=== PATIENT | male | born 1940 | race African-American/Black ===

== ENCOUNTER 2017-12-18 16:12 | Inpatient (IN) | payer BC, OTHER ==
[2017-12-18 16:27] VITALS: BMI 31.5
[2017-12-18] MEDS ORDERED: ACETAMINOPHEN 325 MG TABLET (FP) PO ONE (16:35)
--- NOTE | 2017-12-18 16:46 | PDOC ---
History of Present Illness - General Chief Complaint: Syncope/Near Syncope Stated Complaint: FALL Time Seen by Provider: 12/18/17 16:27 History Source: Patient Exam Limitations: No Limitations - History of Present Illness Initial Comments: 12/18/17 16:39 Patient is a 77M with history of HTN, CHF, DM, CVA/TIA who is presenting today complaining of syncope. Patient states that he was waiting for the bus when he suddenly lost consciousness. He reports no prodromal symptoms. He states that he does not remember what happened. He states that he was not confused when he woke up and felt fine. He denies fevers, chills, nausea, vomiting. He denies shortness of breath. Past History - Past Medical History Allergies/Adverse Reactions: Allergies Allergy/AdvReac Type Severity Reaction Status Date / Time No Known Allergies Allergy Verified 02/25/16 02:40 Home Medications: Ambulatory Orders Allopurinol [Zyloprim -] 300 mg PO DAILY 02/25/16 Clopidogrel Bisulfate [Plavix -] 75 mg PO DAILY 02/25/16 Furosemide [Lasix -] 20 mg PO DAILY 02/25/16 Glyburide [Diabeta -] 2.5 mg PO DAILY 02/25/16 Memantine HCl [Namenda -] 28 mg PO DAILY 02/25/16 Metoprolol Succinate [Toprol Xl] 75 mg PO DAILY 02/25/16 Simvastatin [Zocor -] 20 mg PO HS 02/25/16 Anemia: No Asthma: No Cancer: No Cardiac Disorders: No CVA: Yes COPD: No CHF: No Dementia: No Diabetes: Yes GI Disorders: No HTN: Yes Hypercholesterolemia: No Liver Disease: No Seizures: No - Surgical History Abdominal Surgery: No Appendectomy: No Cardiac Surgery: No Cholecystectomy: No Lung Surgery: No Neurologic Surgery: No Orthopedic Surgery: No - Immunization History Immunization Up to Date: Yes - Suicide/Smoking/Psychosocial Hx Smoking History: Unknown if ever smoked Have you smoked in the past 12 months: No Number of Cigarettes Smoked Daily: 0 If you are a former smoker, when did you quit?: 1997 Cigars Per Day: 0 Hx Alcohol Use: No Drug/Substance Use Hx: No Substance Use Type: None Hx Substance Use Treatment: No Review of Systems - Review of Systems Comments:: 12/18/17 16:46 GENERAL/CONSTITUTIONAL: No fever or chills. No weakness. HEAD, EYES, EARS, NOSE AND THROAT: No change in vision. No sore throat. CARDIOVASCULAR: No chest pain or shortness of breath RESPIRATORY: No cough, wheezing, or hemoptysis. GASTROINTESTINAL: No nausea, vomiting, diarrhea or constipation. GENITOURINARY: No dysuria, frequency, or change in urination. MUSCULOSKELETAL: No joint or muscle swelling or pain. No neck or back pain. SKIN: No rash NEUROLOGIC: Positive for headache. Negative for vertigo, loss of consciousness, or change in strength/sensation. HEMATOLOGIC/LYMPHATIC: No anemia, easy bleeding, or history of blood clots. ALLERGIC/IMMUNOLOGIC: No hives or skin allergy. *Physical Exam - Vital Signs Last Vital Signs Temp Pulse Resp BP Pulse Ox 98.0 F 84 18 157/67 95 12/18/17 16:22 12/18/17 16:22 12/18/17 16:22 12/18/17 16:22 12/18/17 16:22 - Physical Exam Comments: 12/18/17 16:48 GENERAL: Awake, alert, and fully oriented, in no acute distress HEAD: Normocephalic, 6x3cm with overlying abrasion EYES: PERRLA, EOMI, sclera anicteric, conjunctiva clear ENT: Auricles normal inspection, hearing grossly normal, nares patent, oropharynx clear without exudates. Moist mucosa NECK: Normal ROM, supple, no lymphadenopathy, JVD, or masses, no midline tenderness LUNGS: No distress, speaks full sentences, clear to auscultation bilaterally HEART: Regular rate and rhythm, normal S1 and S2, no murmurs, rubs or gallops, peripheral pulses normal and equal bilaterally. ABDOMEN: Soft, nontender, normoactive bowel sounds. No guarding, no rebound. No masses EXTREMITIES: Normal inspection, Normal range of motion, 2+ pitting edema in right leg only. No clubbing or cyanosis. NEUROLOGICAL: Cranial nerves II through XII grossly intact. Normal speech, no focal sensorimotor deficits SKIN: Warm, Dry, normal turgor, no rashes or lesions noted. ED Treatment Course - LABORATORY CBC & Chemistry Diagram: 12/18/17 17:00 12/18/17 17:00 - RADIOLOGY Radiology Studies Ordered: Category Date Time Status HEAD CT WITHOUT CONTRAST [CT] Stat CT Scan 12/18/17 16:35 Ordered CHEST X-RAY PORTABLE* [RAD] Stat Radiology 12/18/17 16:35 Ordered DUPLEX VASCUL US-1 LEG [US] Stat Ultrasound 12/18/17 16:36 Ordered Medical Decision Making - Medical Decision Making 12/18/17 16:49 Patient is a 77M with history of CVA/TIA, HTN, CHF, DM here today with drop syncope. Vital signs normal and stable. Wound on head is not amenable to repair. C-spine cleared by nexus. Cannot rule out significant head injury due to age. Will do cardiac workup, admit. Will also do DVT study 1 week ago that was negative to rule out. EKG shows normal sinus rhythm with rate of 81. No st elevations. ST depression in V6, I. Possible depression in V5. LBBB morphology but QRS <120 at 112. Normal NM/QTc intervals. 12/18/17 18:00 Laboratory Tests 12/18/17 12/18/17 17:00 17:00 WBC 13.3 H Hgb 13.4 Plt Count 253 D BUN 55 H D Creatinine 2.1 H D Troponin I < 0.02 D CBC shows leukocytosis. CMP shows MARGARET. Troponin undetectable. Will add on UA/ UC. Will give 1L. 12/18/17 18:[address] negative. 12/18/17 18:03 CXR shows no acute cardiopulmonary process. 12/18/17 18:09 Dr Jarrett accepts admission to [facility]. *DC/Admit/Observation/Transfer Diagnosis at time of Disposition: Syncope - Discharge Dispostion Condition at time of disposition: Stable Decision to Admit order: Yes - Referrals Referrals: Tyshawn Jarrett MD [Primary Care Provider] - - Patient Instructions - Post Discharge Activity
--- NOTE | 2017-12-18 17:03 | PDOC ---
Attending Attestation - Resident Resident Name: SaranadDylon - ED Attending Attestation I have performed the following: I have examined & evaluated the patient, The case was reviewed & discussed with the resident, I agree w/resident's findings & plan, Exceptions are as noted - HPI HPI: 12/18/17 16:59 With past medical history of hypertension, hyperlipidemia, TIA, CHF, stroke presents with drops and to be. The patient reports that he woke up in his usual state of health. While he was waiting for the bus, the patient had a sudden drops in to be. Denied chest pain, palpitations. Patient woke up and had an abrasion and hematoma to the forehead, nothing that could be sutured up. denies recent illnesses, fevers, chills, cough, vomiting, diarrhea. Patient has no complaints other than his hematoma. Patient had a recent checkup with his primary care physician, Dr. Tyshawn Jarrett, and reportedly had an unremarkable findings. - Physicial Exam PE: 12/18/17 17:00 GENERAL: Awake, alert, and fully oriented, in no acute distress. HEAD: ~6x4 cm hematoma and abrasion to forehead, nothing to be sutured. EYES: PERRLA, EOMI, sclera anicteric, conjunctiva clear ENT: Auricles normal inspection, hearing grossly normal, nares patent NECK: Normal ROM, supple LUNGS: Breath sounds equal, clear to auscultation bilaterally. No wheezes, and no crackles HEART: Regular rate and rhythm, normal S1 and S2, no murmurs, rubs or gallops ABDOMEN: Soft, nontender, normoactive bowel sounds. No guarding, no rebound. No masses EXTREMITIES: Normal range of motion. Trace RLE edema. NEUROLOGICAL: Cranial nerves II through XII grossly intact. Normal speech SKIN: Warm, Dry, normal turgor, no rashes or lesions noted. - Medical Decision Making 12/18/17 17:01 Vital Signs Temp Pulse Resp BP Pulse Ox 98.0 F 84 18 157/67 95 12/18/17 16:22 12/18/17 16:22 12/18/17 16:22 12/18/17 16:22 12/18/17 16:22 Patient would drop syncope. We'll need to rule out neurological, cardiac etiology. CAT scan, labs including troponin, cardiac telemetry. We'll need to update the patient's tetanus. The patient should be admitted to the hospital for further evaluation. 12/18/17 18:[address] demonstrates left frontal scalp hematoma. No CT evidence of acute Pathology. CBC, BMP 12/18/17 17:00 12/18/17 17:00 CMP Sodium 137 mmol/L (136-145) 12/18/17 17:00 Potassium 3.2 mmol/L (3.5-5.1) L 12/18/17 17:00 Chloride 95 mmol/L (98-107) L 12/18/17 17:00 Carbon Dioxide 32 mmol/L (21-32) 12/18/17 17:00 Anion Gap 10 (8-16) 12/18/17 17:00 BUN 55 mg/dL (7-18) H D 12/18/17 17:00 Creatinine 2.1 mg/dL (0.7-1.3) H D 12/18/17 17:00 Creat Clearance w eGFR 30.62 (>60) 12/18/17 17:00 Random Glucose 149 mg/dL (74-106) H 12/18/17 17:00 Calcium 8.7 mg/dL (8.5-10.1) 12/18/17 17:00 Magnesium 2.2 mg/dL (1.8-2.4) 12/18/17 17:00 Total Bilirubin 0.8 mg/dL (0.2-1.0) D 12/18/17 17:00 AST 21 U/L (15-37) D 12/18/17 17:00 ALT 25 U/L (12-78) D 12/18/17 17:00 Alkaline Phosphatase 75 U/L (45-117) 12/18/17 17:00 Creatine Kinase 118 IU/L (39-308) 12/18/17 17:00 Troponin I < 0.02 ng/ml (0.00-0.05) D 12/18/17 17:00 Total Protein 7.7 g/dl (6.4-8.2) D 12/18/17 17:00 Albumin 3.8 g/dl (3.4-5.0) 12/18/17 17:00 Pt noted with acute renal failure. Given drop syncope and acute renal failure, patient should be admitted for further evaluation and management. Heart Score/ECG Review #1 ECG reviewed & interpreted by me at: 16:45 12/18/17 17:01 NSR 81, incomplete LBBB, ST & T wave abnormality, QTC 436 msec
[2017-12-18] MEDS ORDERED: ACETAMINOPHEN 325 MG TABLET (FP) ONE (17:06)
[2017-12-18 17:09] LABS: BASO % 0.5 % (0-2.0); EOS % 1.6 % (0-4.5); HEMATOCRIT 41.1 % (35.4-49); HEMOGLOBIN 13.4 GM/dL (11.7-16.9); LYMPH % 9.9 % (8-40); MCH 31.4 pg (25.7-33.7); MCHC 32.6 g/dl (32.0-35.9); MEAN CELL VOLUME 96.1 fl (80-96); MEAN PLT VOLUME 8.2 fl (7.5-11.1); MONO % 11.4 % (3.8-10.2); NEUT % 76.6 % (42.8-82.8); PLATELET COUNT 253 K/MM3 (134-434); RBC 4.28 M/mm3 (4.00-5.60); WHITE BLOOD COUNT 13.3 K/mm3 (4.0-10.0)
[2017-12-18 17:21] LABS: INR 1.14 (0.82-1.09); PROTHROMBIN TIME (PATIENT) 12.9 SEC (9.7-13.0)
[2017-12-18 17:41] LABS: ALBUMIN 3.8 g/dl (3.4-5.0); ANION GAP 10 (8-16); BLOOD UREA NITROGEN 55 mg/dL (7-18); CALCIUM 8.7 mg/dL (8.5-10.1); CHLORIDE 95 mmol/L (98-107); CO2 32 mmol/L (21-32); GLUCOSE,RANDOM 149 mg/dL (74-106); MAGNESIUM 2.2 mg/dL (1.8-2.4); POTASSIUM 3.2 mmol/L (3.5-5.1); SODIUM 137 mmol/L (136-145)
[2017-12-18 17:47] LABS: ALK PHOS 75 U/L (45-117); BILIRUBIN,TOTAL 0.8 mg/dL (0.2-1.0); CREATININE 2.1 mg/dL (0.7-1.3); SGOT/AST 21 U/L (15-37); SGPT/ALT 25 U/L (12-78); TOT PROT 7.7 g/dl (6.4-8.2)
[2017-12-18] MEDS ORDERED: SODIUM CHLORIDE 1,000 ML IV STA (18:00)
[2017-12-18 19:35] LABS: URINE APPEARANCE CLEAR; URINE BILIRUBIN NEGATIVE (<2.0 mg/dL); URINE BLOOD NEGATIVE (NEGATIVE); URINE COLOR LTYELLOW; URINE GLUCOSE (UA) NEGATIVE (NEGATIVE); URINE KETONE NEGATIVE (NEGATIVE); URINE LEUK ESTERASE NEGATIVE (NEGATIVE); URINE NITRITE NEGATIVE (NEGATIVE); URINE PROTEIN NEGATIVE (NEGATIVE); URINE UROBILINOGEN NEGATIVE mg/dL (0.2-1.0)
[2017-12-19] MEDS ORDERED: ACETAMINOPHEN 325 MG TABLET (FP) PO PRN (00:04)
[2017-12-19 06:36] LABS: ALBUMIN 3.5 g/dl (3.4-5.0); ALK PHOS 75 U/L (45-117); ANION GAP 9 (8-16); BILIRUBIN,TOTAL 0.7 mg/dL (0.2-1.0); BLOOD UREA NITROGEN 44 mg/dL (7-18); CALCIUM 8.5 mg/dL (8.5-10.1); CHLORIDE 101 mmol/L (98-107); CO2 32 mmol/L (21-32); CREATININE 1.6 mg/dL (0.7-1.3); GLUCOSE,RANDOM 131 mg/dL (74-106); POTASSIUM 3.4 mmol/L (3.5-5.1); SGOT/AST 28 U/L (15-37); SGPT/ALT 31 U/L (12-78); SODIUM 142 mmol/L (136-145); TOT PROT 7.2 g/dl (6.4-8.2)
[2017-12-19] MEDS ORDERED: POTASSIUM CHLORIDE ORAL LIQUID 20 MEQ/15 ML PO ONE (09:30)
[2017-12-19] MEDS: CLOPIDOGREL BISULFATE 75 MG TABLET (FP) PO SCH (09:32)
[2017-12-19] MEDS: METOPROLOL SUCCINATE 50 MG, METOPROLOL SUCCINATE 25 MG PO SCH (09:33)
[2017-12-19] MEDS ORDERED: POTASSIUM CHLORIDE ORAL LIQUID 20 MEQ/15 ML ONE (09:34)
--- NOTE | 2017-12-19 11:28 | CON.CARD ---
Consult Consult Specialty:: Cardiology Referred by:: Dr Tyshawn Jarrett Reason for Consultation:: syncope - History of Present Illness Chief Complaint: syncope History of Present Illness: He is a 77 year old man with a history of HTN, NIDDM, chol, chest pain workup 2016 with normal coronaries by Cath at [facility] who now is admitted with syncope. He was standing up at the time and lost consciousness without prodrome. Denies incontinence. No sz activity witnessed. he was recently seen by a [facility] outreach girl friday in Dr Jarrett's office. Echo 02/25/16 mild glob HK, mild LVH, LAE mild to moderate MR FCDAOV Nuclear stress 02/25/16 sm-mod mild inferolateral ischemia EF 37% cath per pt [place] 2016 unremarkable. 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) Cardio/Vascular: Yes: HTN Gastrointestinal: Yes: Diverticulosis Musculoskeletal: Yes: Other (knee o/a) - Alcohol/Substance Use Hx Alcohol Use: No - Smoking History Smoking history: Unknown if ever smoked Have you smoked in the past 12 months: No Aproximately how many cigarettes per day: 0 If you are a former smoker, when did you quit?: 1996 Home Medications - Allergies Allergies/Adverse Reactions: Allergies Allergy/AdvReac Type Severity Reaction Status Date / Time No Known Allergies Allergy Verified 02/25/16 02:40 - Home Medications Home Medications: Ambulatory Orders Allopurinol [Zyloprim -] 300 mg PO DAILY 02/25/16 Clopidogrel Bisulfate [Plavix -] 75 mg PO DAILY 02/25/16 Furosemide [Lasix -] 20 mg PO DAILY 02/25/16 Glyburide [Diabeta -] 2.5 mg PO DAILY 02/25/16 Memantine HCl [Namenda -] 28 mg PO DAILY 02/25/16 Metoprolol Succinate [Toprol Xl] 75 mg PO DAILY 02/25/16 Simvastatin [Zocor -] 20 mg PO HS 02/25/16 Review of Systems - Review of Systems Constitutional: reports: No Symptoms Eyes: reports: No Symptoms HENT: reports: No Symptoms Neck: reports: No Symptoms Respiratory: reports: No Symptoms Gastrointestinal: reports: No Symptoms Genitourinary: reports: No Symptoms Vital Signs: Vital Signs Temperature 97.8 F 12/19/17 08:15 Pulse Rate 80 12/19/17 08:15 Respiratory Rate 16 12/19/17 08:15 Blood Pressure 123/57 12/19/17 08:15 O2 Sat by Pulse Oximetry (%) 97 12/19/17 08:15 Constitutional: Yes: No Distress Eyes: Yes: Conjunctiva Clear, EOM Intact HENT: Yes: Other (laceration left upper forehead.) Respiratory: Yes: CTA Bilaterally Gastrointestinal: Yes: Normal Bowel Sounds, Soft Renal/: Yes: WNL Cardiovascular: Yes: Regular Rate and Rhythm JVD: No Carotid Bruit: No PMI: Non-Displaced Heart Sounds: Yes: S1, S2 Musculoskeletal: Yes: WNL Extremities: Yes: WNL Edema: No Peripheral Pulses WNL: Yes - Other Data Labs, Other Data: CBC, BMP 12/18/17 17:00 12/19/17 05:30 INR, PTT INR 1.14 (0.82-1.09) 12/18/17 17:00 Troponin, BNP 12/18/17 17:00 Troponin I < 0.02 D Troponin, BNP 12/18/17 17:00 Troponin I < 0.02 D Imaging - Results Chest X-ray: Report Reviewed (cm mario) EKG: Report Reviewed (nsr IVCD) Problem List - Problems (1) Syncope Assessment/Plan: Unclear etiology but syncope without prodrome in a patient with IVCD and a nonischemic cardiomyopathy and reduced EF may require EP evaluation depending on the workup. If EF is still reduced he may need EPS or an ICD. Echo is ordered. check orthostatics follow telemetry will follow with you. Code(s): R55 - SYNCOPE AND COLLAPSE Qualifiers: Syncope type: unspecified Qualified Code(s): R55 - Syncope and collapse (2) CHF (congestive heart failure) Assessment/Plan: He has chronic systolic chf due to a nonischemic cardiomyopathy. Continue beta vaibhav. Echo ordered. Hold off on ACEI due to renal disease (appears to have acute on chronic CKD). Code(s): I50.9 - HEART FAILURE, UNSPECIFIED Qualifiers: Heart failure type: systolic Heart failure chronicity: chronic Qualified Code(s): I50.22 - Chronic systolic (congestive) heart failure
--- NOTE | 2017-12-19 11:58 | CON.NEP ---
Consult Consult Specialty:: NEPHROLOGY Reason for Consultation:: margaret/ckd - History of Present Illness Chief Complaint: syncope History of Present Illness: This is a pleasant 77 year old man with a history of diabetes, bph, hypertension and a cardiomyopathy who was at a bus stop yesterday and passed out sustaining an injury to his head. He is not aware of kidney disease but does say that his PMD was "checking" his kidney function. He has no trouble urinating but does urinate very frequently since he takes diuretics. ALso states that he has right lower extremity pain often. He believes he lost consciousness before falling to the ground. No chest pain, no nause aor vomiting. 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 (oms mild) Cardio/Vascular: Yes: HTN Gastrointestinal: Yes: Diverticulosis Musculoskeletal: Yes: Other (knee o/a) - Past Surgical History Past Surgical History: Yes: Tonsillectomy - Alcohol/Substance Use Hx Alcohol Use: No - Smoking History Smoking history: Unknown if ever smoked Have you smoked in the past 12 months: No Aproximately how many cigarettes per day: 0 If you are a former smoker, when did you quit?: 1996 Home Medications - Allergies Allergies/Adverse Reactions: Allergies Allergy/AdvReac Type Severity Reaction Status Date / Time No Known Allergies Allergy Verified 02/25/16 02:40 - Home Medications Home Medications: Ambulatory Orders Allopurinol [Zyloprim -] 300 mg PO DAILY 02/25/16 Clopidogrel Bisulfate [Plavix -] 75 mg PO DAILY 02/25/16 Furosemide [Lasix -] 20 mg PO DAILY 02/25/16 Glyburide [Diabeta -] 2.5 mg PO DAILY 02/25/16 Memantine HCl [Namenda -] 28 mg PO DAILY 02/25/16 Metoprolol Succinate [Toprol Xl] 75 mg PO DAILY 02/25/16 Simvastatin [Zocor -] 20 mg PO HS 02/25/16 Review of Systems - Review of Systems Constitutional: reports: No Symptoms Eyes: reports: No Symptoms HENT: reports: No Symptoms Neck: reports: No Symptoms Cardiovascular: reports: No Symptoms Respiratory: reports: No Symptoms Gastrointestinal: reports: No Symptoms Breasts: reports: No Symptoms Reported Musculoskeletal: reports: Extremity Pain Integumentary: reports: No Symptoms Neurological: reports: Syncope Endocrine: reports: No Symptoms Hematology/Lymphatic: reports: No Symptoms Psychiatric: reports: No Symptoms Nephrology Consult - Height Height: 5 ft 10 in - Weight Weight: 220 lb - BMI Body Mass Index (BMI): 31.5 - Lab Results CBC,BMP: CBC, BMP 12/18/17 17:00 12/19/17 05:30 Anion Gap: Anion Gap Anion Gap 9 (8-16) 12/19/17 05:30 - Imaging Chest X-ray: Report Reviewed Cat Scan: Report Reviewed - Physical Examination Vital Signs: Vital Signs Temperature 97.8 F 12/19/17 08:15 Pulse Rate 80 12/19/17 08:15 Respiratory Rate 16 12/19/17 08:15 Blood Pressure 123/57 12/19/17 08:15 O2 Sat by Pulse Oximetry (%) 97 12/19/17 08:15 Constitutional: Yes: Well Nourished, No Distress Eyes: Yes: Conjunctiva Clear HENT: Yes: Other (laceration and swelling over left side of forehead) Neck: Yes: WNL Cardiovascular: Yes: Regular Rate and Rhythm Respiratory: Yes: Regular, CTA Bilaterally Gastrointestinal: Yes: Normal Bowel Sounds Renal/: Yes: WNL Musculoskeletal: Yes: WNL Extremities: Yes: WNL Edema: No Integumentary: Yes: Other (has hyperpigmentation over right lower extremity below knee) Neurological: Yes: Alert, Oriented Psychiatric: Yes: Alert, Oriented Assessment/Plan IMPRESSION 1. Syncope 2. Hypokalemia 3. Probable MARGARET on CKD due to diuretics/volume depletion +/- drop in BP from arrhythmia 4. cardiomyopathy per cardiology 5. normal urinalysis 6. venous insufficiency changes on right lower extremity PLAN would discuss discontinuing memantine since it can cause dizziness and confusison replete k agree that may need ICD hold diuretics renal sono urine protein and creat MV
--- NOTE | 2017-12-19 12:37 | CON.NEURO ---
Consult - History of Present Illness History of Present Illness: 77 year old man with a history of HTN, NIDDM, chol, chest pain workup 2016 with normal coronaries by Cath at [facility] who now is admitted with syncope. He was standing up at the time --+LOC Denies incontinence/tongue biting. No sz activity witnessed. no HX of Sz Echo 02/25/16 mild glob HK, mild LVH, LAE mild to moderate MR FCDAOV Nuclear stress 02/25/16 sm-mod mild inferolateral ischemia EF 37% cath per pt [place] 2016 unremarkable. being treated for MARGARET on CKD due to diuretics/volume depletion UA (-), TSh NL IMPRESSION: No CT evidence of acute intracranial pathology. The intracranial structures demonstrate no definite interval change is in comparison to a prior CT study of 06/22/2015. Chronic bilateral cerebral and cerebellar infarcts are noted as discussed above. Doppler: IMPRESSION: Mild atherosclerotic disease with no evidence of hemodynamically significant stenoses. AP : Syncope -- no evidence of seizure or acute CVA event. nonfocal exam and appears back to baseline. sheridan BANDA in progress. OK to DC NAMENDA unclear etiology of chronic posterior circulation CVA, though not likely a factor in this event; would get MRI/MRA Head and NECK ; repeat holter also reasonable. maintain ASA /statin for now. 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) Cardio/Vascular: Yes: HTN Gastrointestinal: Yes: Diverticulosis Musculoskeletal: Yes: Other (knee o/a) - Past Surgical History Past Surgical History: Yes: Tonsillectomy - Alcohol/Substance Use Hx Alcohol Use: No - Smoking History Smoking history: Unknown if ever smoked Have you smoked in the past 12 months: No Aproximately how many cigarettes per day: 0 If you are a former smoker, when did you quit?: 1996 Home Medications - Allergies Allergies/Adverse Reactions: Allergies Allergy/AdvReac Type Severity Reaction Status Date / Time No Known Allergies Allergy Verified 02/25/16 02:40 - Home Medications Home Medications: Ambulatory Orders Allopurinol [Zyloprim -] 300 mg PO DAILY 02/25/16 Clopidogrel Bisulfate [Plavix -] 75 mg PO DAILY 02/25/16 Furosemide [Lasix -] 20 mg PO DAILY 02/25/16 Glyburide [Diabeta -] 2.5 mg PO DAILY 02/25/16 Memantine HCl [Namenda -] 28 mg PO DAILY 02/25/16 Metoprolol Succinate [Toprol Xl] 75 mg PO DAILY 02/25/16 Simvastatin [Zocor -] 20 mg PO HS 02/25/16 Physical Exam-Neuro Vital Signs: Vital Signs Temperature 98.2 F 12/19/17 12:08 Pulse Rate 67 12/19/17 12:08 Respiratory Rate 18 12/19/17 12:08 Blood Pressure 142/76 12/19/17 12:08 O2 Sat by Pulse Oximetry (%) 98 12/19/17 11:27 Labs: CBC, BMP 12/18/17 17:00 12/19/17 05:30 INR, PTT INR 1.14 (0.82-1.09) 12/18/17 17:00 Imaging - Results Cat Scan: Report Reviewed, Image Reviewed Assessment/Plan 77 year old man with a history of HTN, NIDDM, chol, chest pain workup 2016 with normal coronaries by Cath at [facility] who now is admitted with syncope. He was standing up at the time and lost consciousness without prodrome. Denies incontinence. No sz activity witnessed. no HX of Sz Echo 02/25/16 mild glob HK, mild LVH, LAE mild to moderate MR FCDAOV Nuclear stress 02/25/16 sm-mod mild inferolateral ischemia EF 37% cath per pt [place] 2015 unremarkable. being treated for MARGARET on CKD due to diuretics/volume depletion UA (-), TSh NL , DOppler (-), CT HD (-) except ? fluid left maxillary
[2017-12-19] MEDS ORDERED: AZITHROMYCIN 250 MG TABLET PO ONE (12:39)
--- NOTE | 2017-12-19 12:39 | HP ---
Admitting History and Physical - Admission History of Present Illness: loc last pm while waiting for bus remembered all ? 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 (oms mild) Cardiovascular: Yes: HTN Pulmonary: Yes: Other (cogh) Gastrointestinal: Yes: Diverticulosis Psych: Yes: Other (at times confused) Musculoskeletal: Yes: Other (knee o/a) - Past Surgical History Past Surgical History: Yes: None, Tonsillectomy - Smoking History Smoking history: Unknown if ever smoked Have you smoked in the past 12 months: No Aproximately how many cigarettes per day: 0 If you are a former smoker, when did you quit?: 1996 - Alcohol/Substance Use Hx Alcohol Use: No History of Substance Use: reports: None - Social History Usual Living Arrangement: Yes: With Spouse Home Medications - Allergies Allergies/Adverse Reactions: Allergies Allergy/AdvReac Type Severity Reaction Status Date / Time No Known Allergies Allergy Verified 02/25/16 02:40 - Home Medications Home Medications: Ambulatory Orders Allopurinol [Zyloprim -] 300 mg PO DAILY 02/25/16 Clopidogrel Bisulfate [Plavix -] 75 mg PO DAILY 02/25/16 Furosemide [Lasix -] 20 mg PO DAILY 02/25/16 Glyburide [Diabeta -] 2.5 mg PO DAILY 02/25/16 Memantine HCl [Namenda -] 28 mg PO DAILY 02/25/16 Metoprolol Succinate [Toprol Xl] 75 mg PO DAILY 02/25/16 Simvastatin [Zocor -] 20 mg PO HS 02/25/16 Family Disease History - Family Disease History Family History: Unremarkable Physical Examination Vital Signs: Vital Signs Temperature 98.2 F 12/19/17 12:08 Pulse Rate 67 12/19/17 12:08 Respiratory Rate 18 12/19/17 12:08 Blood Pressure 142/76 12/19/17 12:08 O2 Sat by Pulse Oximetry (%) 98 12/19/17 11:27 Labs: CBC, BMP 12/18/17 17:00 12/19/17 05:30 Assessment/Plan [facility] echo neuro f/u cont tx as is chk cbc today zpak given robitussi dm po
[2017-12-19 13:03] LABS: BASO % 0.4 % (0-2.0); EOS % 1.6 % (0-4.5); HEMATOCRIT 41.7 % (35.4-49); HEMOGLOBIN 13.9 GM/dL (11.7-16.9); LYMPH % 11.5 % (8-40); MCH 32.2 pg (25.7-33.7); MCHC 33.3 g/dl (32.0-35.9); MEAN CELL VOLUME 96.7 fl (80-96); MEAN PLT VOLUME 8.5 fl (7.5-11.1); MONO % 9.4 % (3.8-10.2); NEUT % 77.1 % (42.8-82.8); PLATELET COUNT 235 K/MM3 (134-434); RBC 4.31 M/mm3 (4.00-5.60); RDW 14.4 % (11.9-15.9); WHITE BLOOD COUNT 12.5 K/mm3 (4.0-10.0)
[2017-12-19] MEDS: guaiFENesin 200 MG/10 ML 10 ML UNIT-DOSE CUPS PO PRN ×2 (13:59→23:50)
[2017-12-19] MEDS: ATORVASTATIN CA 40 MG TABLET (FP) PO SCH (23:02)
[2017-12-19] MEDS: SODIUM CHLORIDE 1,000 ML IV SCH ×2 (23:53)
[2017-12-20] MEDS ORDERED: ALBUTEROL SO4 2.5/IPRATROPIUM 0.5 INH SOL 3 ML VIAL.NEB. NEB ONE (01:50)
[2017-12-20 07:25] LABS: ANION GAP 7 (8-16); BLOOD UREA NITROGEN 26 mg/dL (7-18); CALCIUM 8.1 mg/dL (8.5-10.1); CHLORIDE 103 mmol/L (98-107); CO2 30 mmol/L (21-32); GLUCOSE,RANDOM 136 mg/dL (74-106); POTASSIUM 3.6 mmol/L (3.5-5.1); SODIUM 140 mmol/L (136-145)
[2017-12-20 07:27] LABS: CREATININE 1.2 mg/dL (0.7-1.3)
[2017-12-20] MEDS ORDERED: metoPROLOL SUCCINATE 25 MG TAB.SR.24H (FP) ONE (10:34)
[2017-12-20] MEDS ORDERED: PT OWN MED DRAWER 7, Y5N ONE (10:35)
[2017-12-20] MEDS: ASPIRIN COATED 81 MG TABLET.EC PO SCH (10:38)
[2017-12-20] MEDS: AZITHROMYCIN 250 MG TABLET PO SCH (10:38)
[2017-12-20] MEDS: METOPROLOL SUCCINATE 50 MG, METOPROLOL SUCCINATE 25 MG PO SCH (10:38)
[2017-12-20] MEDS: CLOPIDOGREL BISULFATE 75 MG TABLET (FP) PO SCH (10:38)
--- NOTE | 2017-12-20 12:30 | PN ---
Progress Note, Physician Chief Complaint: no complaints tele neg History of Present Illness: He is a 77 year old man with a history of HTN, NIDDM, chol, chest pain workup 2016 with normal coronaries by Cath at [facility] who now is admitted with syncope. He was standing up at the time and lost consciousness without prodrome. Denies incontinence. No sz activity witnessed. he was recently seen by a [facility] outreach architectural representative in Dr Jarrett's office. Echo 02/25/16 mild glob HK, mild LVH, LAE mild to moderate MR FCDAOV Nuclear stress 02/25/16 sm-mod mild inferolateral ischemia EF 37% cath per pt [place] 2016 unremarkable. - Current Medication List Current Medications: Active Medications Acetaminophen (Tylenol -) 650 mg PO Q4H PRN PRN Reason: PAIN LEVEL 7 - 10 Stop: 12/22/17 23:59 Last Admin: 12/19/17 00:38 Dose: 650 mg Aspirin (Ecotrin -) 81 mg PO DAILY [facility] Last Admin: 12/20/17 10:38 Dose: 81 mg Atorvastatin Calcium (Lipitor -) 40 mg PO HS [facility] Last Admin: 12/19/17 23:02 Dose: 40 mg Azithromycin (Zithromax -) 250 mg PO DAILY [facility] Stop: 12/23/17 10:01 Last Admin: 12/20/17 10:38 Dose: 250 mg Clopidogrel Bisulfate (Plavix -) 75 mg PO DAILY [facility] Last Admin: 12/20/17 10:38 Dose: 75 mg Guaifenesin (Robitussin -) 10 ml PO Q4H PRN PRN Reason: COUGH Last Admin: 12/19/17 23:50 Dose: 10 ml Sodium Chloride (Normal Saline -) 1,000 mls @ 75 mls/hr IV ASDIR [facility] Last Admin: 12/19/17 23:53 Dose: 75 mls/hr Metoprolol Succinate 50 mg/ (Metoprolol Succinate 25 mg) 75 mg PO DAILY [facility] Last Admin: 12/20/17 10:38 Dose: 75 mg - Objective Vital Signs: Vital Signs Temperature 99.0 F 12/20/17 04:00 Pulse Rate 71 12/20/17 04:00 Respiratory Rate 13 12/20/17 04:00 Blood Pressure 150/71 12/20/17 04:00 O2 Sat by Pulse Oximetry (%) 95 12/19/17 21:00 Constitutional: Yes: No Distress, Calm Eyes: Yes: Conjunctiva Clear, EOM Intact HENT: Yes: Normocephalic Neck: Yes: Trachea Midline Cardiovascular: Yes: Regular Rate and Rhythm Respiratory: Yes: CTA Bilaterally Gastrointestinal: Yes: Normal Bowel Sounds, Soft Genitourinary: Yes: WNL Musculoskeletal: Yes: WNL Extremities: Yes: WNL Edema: No Peripheral Pulses WNL: Yes Labs: CBC, BMP 12/19/17 12:55 12/20/17 05:00 INR, PTT INR 1.14 (0.82-1.09) 12/18/17 17:00 Problem List - Problems (1) Syncope Assessment/Plan: Unclear etiology but syncope without prodrome in a patient with IVCD and a nonischemic cardiomyopathy and reduced EF may require EP evaluation depending on the workup. If EF is still reduced he may need EPS or an ICD. Echo is ordered. check orthostatics follow telemetry, negative so far. will follow with you. Code(s): R55 - SYNCOPE AND COLLAPSE Qualifiers: Syncope type: unspecified Qualified Code(s): R55 - Syncope and collapse (2) CHF (congestive heart failure) Assessment/Plan: He has chronic systolic chf due to a nonischemic cardiomyopathy. Continue beta vaibhav. Echo ordered. Hold off on ACEI due to renal disease (appears to have acute on chronic CKD). Code(s): I50.9 - HEART FAILURE, UNSPECIFIED Qualifiers: Heart failure type: systolic Heart failure chronicity: chronic Qualified Code(s): I50.22 - Chronic systolic (congestive) heart failure
--- NOTE | 2017-12-20 12:32 | PN ---
Progress Note (short form) - Note Progress Note: RENAL comfortable feels well Last Vital Signs Temp Pulse Resp BP Pulse Ox 99.0 F 71 13 150/71 95 12/20/17 04:00 12/20/17 04:00 12/20/17 04:00 12/20/17 04:00 12/19/17 21:00 lungs clear cvs s1s2 rr abd soft ext no edema neuro a+ox3 CBC, BMP 12/19/17 12:55 12/20/17 05:00 Current Medications Generic Name Dose Route Start Last Admin Trade Name Freq PRN Reason Stop Dose Admin Acetaminophen 650 mg 12/19/17 00:04 12/19/17 00:38 Tylenol - PO 12/22/17 23:59 650 mg Q4H PRN Administration PAIN LEVEL 7 - 10 Aspirin 81 mg 12/20/17 10:00 12/20/17 10:38 Ecotrin - PO 81 mg DAILY [facility] Administration Atorvastatin Calcium 40 mg 12/19/17 22:00 12/19/17 23:02 Lipitor - PO 40 mg HS CASEY Administration Azithromycin 250 mg 12/20/17 10:00 12/20/17 10:38 Zithromax - PO 12/23/17 10:01 250 mg DAILY [facility] Administration Clopidogrel Bisulfate 75 mg 12/19/17 10:00 12/20/17 10:38 Plavix - PO 75 mg DAILY [facility] Administration Guaifenesin 10 ml 12/19/17 12:39 12/19/17 23:50 Robitussin - PO 10 ml Q4H PRN Administration COUGH Sodium Chloride 1,000 mls @ 75 mls/hr 12/18/17 23:45 12/19/17 23:53 Normal Saline - IV 75 mls/hr ASDIR [facility] Administration Metoprolol Succinate 50 mg/ 75 mg 12/19/17 10:00 12/20/17 10:38 Metoprolol Succinate 25 mg PO 75 mg DAILY [facility] Administration IMPRESSION 1. Syncope 2. Hypokalemia 3. Probable MARGARET on CKD due to diuretics/volume depletion +/- drop in BP from arrhythmia- MARGARET is better 4. cardiomyopathy per cardiology 5. normal urinalysis 6. venous insufficiency changes on right lower extremity PLAN continue current management f/u echo dc ivf and keep off diuretics for now r/o arrhythmia MV
--- NOTE | 2017-12-20 13:16 | PN ---
Progress Note (short form) - Note Progress Note: 77 year old man with a history of HTN, NIDDM, chol, chest pain workup 2016 with normal coronaries by Cath at [facility] who now is admitted with syncope. He was standing up at the time --+LOC Denies incontinence/tongue biting. No sz activity witnessed. no HX of Sz Echo 02/25/16 mild glob HK, mild LVH, LAE mild to moderate MR FCDAOV Nuclear stress 02/25/16 sm-mod mild inferolateral ischemia EF 37% cath per pt [place] 2016 unremarkable. being treated for MARGARET on CKD due to diuretics/volume depletion UA (-), TSh NL IMPRESSION: No CT evidence of acute intracranial pathology. The intracranial structures demonstrate no definite interval change is in comparison to a prior CT study of 06/22/2015. Chronic bilateral cerebral and cerebellar infarcts are noted as discussed above. Doppler: IMPRESSION: Mild atherosclerotic disease with no evidence of hemodynamically significant stenoses. FU : no new issues MRI PRELIm reviewed- no acute stroke, + posterior atrophy (more than expected for age) , chronic BL occpital cva , poor visualization R MASCARA MOLDER and distal MCA branches - Past Medical History [employer]: Yes: CVA, TIA, Other (oms mild) Cardio/Vascular: Yes: HTN Gastrointestinal: Yes: Diverticulosis Musculoskeletal: Yes: Other (knee o/a) - Past Surgical History Past Surgical History: Yes: Tonsillectomy - Alcohol/Substance Use Hx Alcohol Use: No - Smoking History Smoking history: Unknown if ever smoked Have you smoked in the past 12 months: No Aproximately how many cigarettes per day: 0 If you are a former smoker, when did you quit?: 1996 Home Medications - Allergies Allergies/Adverse Reactions: Allergies Allergy/AdvReac Type Severity Reaction Status Date / Time No Known Allergies Allergy Verified 02/25/16 02:40 - Home Medications Home Medications: Ambulatory Orders Allopurinol [Zyloprim -] 300 mg PO DAILY 02/25/16 Clopidogrel Bisulfate [Plavix -] 75 mg PO DAILY 02/25/16 Furosemide [Lasix -] 20 mg PO DAILY 02/25/16 Glyburide [Diabeta -] 2.5 mg PO DAILY 02/25/16 Memantine HCl [Namenda -] 28 mg PO DAILY 02/25/16 Metoprolol Succinate [Toprol Xl] 75 mg PO DAILY 02/25/16 Simvastatin [Zocor -] 20 mg PO HS 02/25/16 Physical Exam-Neuro Vital Signs: Vital Signs Temperature 99.0 F 12/20/17 04:00 Pulse Rate 71 12/20/17 04:00 Respiratory Rate 13 12/20/17 04:00 Blood Pressure 150/71 12/20/17 04:00 O2 Sat by Pulse Oximetry (%) 95 12/19/17 21:00 Labs: CBCD WBC 12.5 K/mm3 (4.0-10.0) H 12/19/17 12:55 RBC 4.31 M/mm3 (4.00-5.60) 12/19/17 12:55 Hgb 13.9 GM/dL (11.7-16.9) 12/19/17 12:55 Hct 41.7 % (35.4-49) 12/19/17 12:55 MCV 96.7 fl (80-96) H 12/19/17 12:55 MCHC 33.3 g/dl (32.0-35.9) 12/19/17 12:55 RDW 14.4 % (11.9-15.9) 12/19/17 12:55 Plt Count 235 K/MM3 (134-434) 12/19/17 12:55 MPV 8.5 fl (7.5-11.1) 12/19/17 12:55 CMP Sodium 140 mmol/L (136-145) 12/20/17 05:00 Potassium 3.6 mmol/L (3.5-5.1) 12/20/17 05:00 Chloride 103 mmol/L (98-107) 12/20/17 05:00 Carbon Dioxide 30 mmol/L (21-32) 12/20/17 05:00 Anion Gap 7 (8-16) L 12/20/17 05:00 BUN 26 mg/dL (7-18) H D 12/20/17 05:00 Creatinine 1.2 mg/dL (0.7-1.3) D 12/20/17 05:00 Creat Clearance w eGFR 41.90 (>60) 12/19/17 05:30 Calcium 8.1 mg/dL (8.5-10.1) L 12/20/17 05:00 Total Bilirubin 0.7 mg/dL (0.2-1.0) 12/19/17 05:30 AST 28 U/L (15-37) D 12/19/17 05:30 ALT 31 U/L (12-78) D 12/19/17 05:30 Alkaline Phosphatase 75 U/L (45-117) 12/19/17 05:30 Total Protein 7.2 g/dl (6.4-8.2) 12/19/17 05:30 Albumin 3.5 g/dl (3.4-5.0) 12/19/17 05:30 Imaging - Results Cat Scan: Report Reviewed, Image Reviewed Assessment/Plan 77 year old man with a history of HTN, NIDDM, chol, chest pain workup 2016 with normal coronaries by Cath at [facility] who now is admitted with syncope. He was standing up at the time and lost consciousness without prodrome. Denies incontinence. No sz activity witnessed. no HX of Sz Echo 02/25/16 mild glob HK, mild LVH, LAE mild to moderate MR FCDAOV Nuclear stress 02/25/16 sm-mod mild inferolateral ischemia EF 37% cath per pt [place] 2016 unremarkable. being treated for MARGARET on CKD due to diuretics/volume depletion UA (-), TSh NL , DOppler (-), CT HD (-) except ? fluid left maxillary AP : Syncope -- no evidence of seizure or acute CVA event. nonfocal exam and appears back to baseline. sheridan BANDA in progress, FU ECHO DOPPLER (-) , FU official MRI continue NAMENDA unclear etiology of chronic posterior circulation CVA, though not likely a factor in this event; alf holter if possible on ASA/plavix --though unclear if needs dual AP at this point from neuro perspective-can revert to ASA Dr Chang
[2017-12-20] MEDS: ATORVASTATIN CA 40 MG TABLET (FP) PO SCH (21:17)
--- NOTE | 2017-12-20 22:12 | EKG ---
Test Reason : Blood Pressure : / mmHG Vent. Rate : 071 BPM Atrial Rate : 071 BPM P-R Int : 138 ms QRS Dur : 106 ms QT Int : 400 ms P-R-T Axes : 052 019 090 degrees QTc Int : 434 ms SINUS RHYTHM WITH OCCASIONAL PREMATURE VENTRICULAR COMPLEXES OTHERWISE NORMAL ECG WHEN COMPARED WITH ECG OF 18-DEC-2017 16:41, PREMATURE VENTRICULAR COMPLEXES ARE NOW PRESENT NONSPECIFIC T WAVE ABNORMALITY HAS REPLACED INVERTED T WAVES IN LATERAL LEADS Confirmed by HAROON OLIVIER MD ([id number]) on 12/20/2017 10:11:38 PM Referred By: Juan Miguel KEITA Confirmed By:HAROON OLIVIER MD
--- NOTE | 2017-12-20 22:25 | EKG ---
Test Reason : Blood Pressure : / mmHG Vent. Rate : 081 BPM Atrial Rate : 081 BPM P-R Int : 144 ms QRS Dur : 112 ms QT Int : 376 ms P-R-T Axes : 037 015 103 degrees QTc Int : 436 ms NORMAL SINUS RHYTHM INCOMPLETE LEFT BUNDLE BRANCH BLOCK ABNORMAL ECG Confirmed by HAROON OLIVIER MD ([id number]) on 12/20/2017 10:25:14 PM Referred By: Confirmed By:HAROON OLIVIER MD
[2017-12-21 07:00] LABS: ANION GAP 4 (8-16); BLOOD UREA NITROGEN 20 mg/dL (7-18); CALCIUM 8.4 mg/dL (8.5-10.1); CHLORIDE 105 mmol/L (98-107); CO2 34 mmol/L (21-32); CREATININE 1.1 mg/dL (0.7-1.3); GLUCOSE,RANDOM 129 mg/dL (74-106); POTASSIUM 3.8 mmol/L (3.5-5.1); SODIUM 143 mmol/L (136-145)
[2017-12-21 07:11] LABS: BASO % 0.6 % (0-2.0); HEMATOCRIT 38.4 % (35.4-49); HEMOGLOBIN 12.7 GM/dL (11.7-16.9); LYMPH % 15.9 % (8-40); MCH 32.1 pg (25.7-33.7); MEAN CELL VOLUME 97.2 fl (80-96); MEAN PLT VOLUME 8.9 fl (7.5-11.1); MONO % 10.6 % (3.8-10.2); NEUT % 69.9 % (42.8-82.8); PLATELET COUNT 216 K/MM3 (134-434); RBC 3.95 M/mm3 (4.00-5.60); RDW 14.1 % (11.9-15.9); WHITE BLOOD COUNT 11.4 K/mm3 (4.0-10.0)
[2017-12-21] MEDS ORDERED: metoPROLOL SUCCINATE 25 MG TAB.SR.24H (FP) ONE (08:59)
--- NOTE | 2017-12-21 09:51 | PN ---
Progress Note, Physician History of Present Illness: feels well vss tolerating bm present - Current Medication List Current Medications: Active Medications Acetaminophen (Tylenol -) 650 mg PO Q4H PRN PRN Reason: PAIN LEVEL 7 - 10 Stop: 12/22/17 23:59 Last Admin: 12/19/17 00:38 Dose: 650 mg Aspirin (Ecotrin -) 81 mg PO DAILY [facility] Last Admin: 12/20/17 10:38 Dose: 81 mg Atorvastatin Calcium (Lipitor -) 40 mg PO HS [facility] Last Admin: 12/20/17 21:17 Dose: 40 mg Azithromycin (Zithromax -) 250 mg PO DAILY [facility] Stop: 12/23/17 10:01 Last Admin: 12/20/17 10:38 Dose: 250 mg Guaifenesin (Robitussin -) 10 ml PO Q4H PRN PRN Reason: COUGH Last Admin: 12/19/17 23:50 Dose: 10 ml Metoprolol Succinate 50 mg/ (Metoprolol Succinate 25 mg) 75 mg PO DAILY [facility] Last Admin: 12/20/17 10:38 Dose: 75 mg - Objective Vital Signs: Vital Signs Temperature 98.5 F 12/21/17 05:11 Pulse Rate 65 12/21/17 05:11 Respiratory Rate 20 12/21/17 05:11 Blood Pressure 152/88 12/21/17 05:11 O2 Sat by Pulse Oximetry (%) 96 12/20/17 23:20 Constitutional: Yes: Well Nourished, No Distress Eyes: Yes: WNL HENT: Yes: WNL Neck: Yes: WNL Cardiovascular: Yes: Regular Rate and Rhythm Respiratory: Yes: WNL Gastrointestinal: Yes: WNL ...Rectal Exam: Yes: Deferred Genitourinary: Yes: WNL Breast(s): Yes: WNL Musculoskeletal: Yes: WNL Extremities: Yes: WNL Edema: Yes Edema: LLE: 1+, RLE: 1+ Peripheral Pulses WNL: Yes Integumentary: Yes: WNL Neurological: Yes: WNL ...Motor Strength: WNL Psychiatric: Yes: WNL Labs: CBC, BMP 12/21/17 05:58 12/21/17 05:58 INR, PTT INR 1.14 (0.82-1.09) 12/18/17 17:00 Assessment/Plan d/c plavix as per neuro cont curent tx as is ? dc home or transfer
[2017-12-21] MEDS: ASPIRIN COATED 81 MG TABLET.EC PO SCH (10:24)
[2017-12-21] MEDS: METOPROLOL SUCCINATE 50 MG, METOPROLOL SUCCINATE 25 MG PO SCH (10:24)
[2017-12-21] MEDS ORDERED: PT OWN MED DRAWER 7, Y5N ONE (10:35)
[2017-12-21] MEDS: AZITHROMYCIN 250 MG TABLET PO SCH (10:38)
--- NOTE | 2017-12-21 13:32 | PN ---
Progress Note, Physician History of Present Illness: Pt seen and examined at bedside. He is awake and alert. He denies shortness of breath. - Current Medication List Current Medications: Active Medications Acetaminophen (Tylenol -) 650 mg PO Q4H PRN PRN Reason: PAIN LEVEL 7 - 10 Stop: 12/22/17 23:59 Last Admin: 12/19/17 00:38 Dose: 650 mg Aspirin (Ecotrin -) 81 mg PO DAILY [facility] Last Admin: 12/21/17 10:24 Dose: 81 mg Atorvastatin Calcium (Lipitor -) 40 mg PO HS [facility] Last Admin: 12/20/17 21:17 Dose: 40 mg Azithromycin (Zithromax -) 250 mg PO DAILY [facility] Stop: 12/23/17 10:01 Last Admin: 12/21/17 10:38 Dose: 250 mg Guaifenesin (Robitussin -) 10 ml PO Q4H PRN PRN Reason: COUGH Last Admin: 12/19/17 23:50 Dose: 10 ml Metoprolol Succinate 50 mg/ (Metoprolol Succinate 25 mg) 75 mg PO DAILY [facility] Last Admin: 12/21/17 10:24 Dose: 75 mg - Objective Vital Signs: Vital Signs Temperature 98 F 12/21/17 10:00 Pulse Rate 97 H 12/21/17 10:00 Respiratory Rate 20 12/21/17 10:00 Blood Pressure 158/67 12/21/17 10:00 O2 Sat by Pulse Oximetry (%) 98 12/21/17 09:00 Constitutional: Yes: Calm Eyes: Yes: Conjunctiva Clear HENT: Yes: Other (left forhead and eye trauma post fall) Cardiovascular: Yes: S1, S2 Respiratory: Yes: CTA Bilaterally Gastrointestinal: Yes: Soft Genitourinary: Yes: WNL Edema: No Integumentary: Yes: Venous Stasis Changes Neurological: Yes: Oriented Psychiatric: Yes: Oriented Labs: CBC, BMP 12/21/17 05:58 12/21/17 05:58 INR, PTT INR 1.14 (0.82-1.09) 12/18/17 17:00 Problem List - Problems (1) Syncope Code(s): R55 - SYNCOPE AND COLLAPSE Qualifiers: Syncope type: unspecified Qualified Code(s): R55 - Syncope and collapse (2) Diabetes Code(s): E11.9 - TYPE 2 DIABETES MELLITUS WITHOUT COMPLICATIONS (3) Gout Code(s): M10.9 - GOUT, UNSPECIFIED Qualifiers: Gout site: knee (4) HTN (hypertension) Code(s): I10 - ESSENTIAL (PRIMARY) HYPERTENSION Assessment/Plan Current Medications Generic Name Dose Route Start Last Admin Trade Name Freq PRN Reason Stop Dose Admin Acetaminophen 650 mg 12/19/17 00:04 12/19/17 00:38 Tylenol - PO 12/22/17 23:59 650 mg Q4H PRN Administration PAIN LEVEL 7 - 10 Aspirin 81 mg 12/20/17 10:00 12/21/17 10:24 Ecotrin - PO 81 mg DAILY [facility]Y Administration Atorvastatin Calcium 40 mg 12/19/17 22:00 12/20/17 21:17 Lipitor - PO 40 mg HS [facility]Y Administration Azithromycin 250 mg 12/20/17 10:00 12/21/17 10:38 Zithromax - PO 12/23/17 10:01 250 mg DAILY [facility] Administration Guaifenesin 10 ml 12/19/17 12:39 12/19/17 23:50 Robitussin - PO 10 ml Q4H PRN Administration COUGH Metoprolol Succinate 50 mg/ 75 mg 12/19/17 10:00 12/21/17 10:24 Metoprolol Succinate 25 mg PO 75 mg DAILY [facility] Administration Impression 1. syncope 2. hypokalemia 3. MARGARET on CKD 4. dehydration 5. cardiomyopathy 6. PVD changes on right lower extremity Plan - renal function is improving - ua negative - repeat labs in am - diuretics on hold for now - will follow Dr Welch
--- NOTE | 2017-12-21 13:37 | PN ---
Progress Note, Physician History of Present Illness: seen and examined today in the [facility]. no overnight events. no new complaints. - Current Medication List Current Medications: Active Medications Acetaminophen (Tylenol -) 650 mg PO Q4H PRN PRN Reason: PAIN LEVEL 7 - 10 Stop: 12/22/17 23:59 Last Admin: 12/19/17 00:38 Dose: 650 mg Aspirin (Ecotrin -) 81 mg PO DAILY [facility] Last Admin: 12/21/17 10:24 Dose: 81 mg Atorvastatin Calcium (Lipitor -) 40 mg PO HS [facility] Last Admin: 12/20/17 21:17 Dose: 40 mg Azithromycin (Zithromax -) 250 mg PO DAILY [facility] Stop: 12/23/17 10:01 Last Admin: 12/21/17 10:38 Dose: 250 mg Guaifenesin (Robitussin -) 10 ml PO Q4H PRN PRN Reason: COUGH Last Admin: 12/19/17 23:50 Dose: 10 ml Metoprolol Succinate 50 mg/ (Metoprolol Succinate 25 mg) 75 mg PO DAILY [facility] Last Admin: 12/21/17 10:24 Dose: 75 mg - Objective Vital Signs: Vital Signs Temperature 98 F 12/21/17 10:00 Pulse Rate 97 H 12/21/17 10:00 Respiratory Rate 20 12/21/17 10:00 Blood Pressure 158/67 12/21/17 10:00 O2 Sat by Pulse Oximetry (%) 98 12/21/17 09:00 Constitutional: Yes: Well Nourished, No Distress, Calm Eyes: Yes: WNL, Conjunctiva Clear, EOM Intact, PERRL HENT: Yes: WNL, Atraumatic, Normocephalic Neck: Yes: WNL, Supple, Trachea Midline Cardiovascular: Yes: WNL, Regular Rate and Rhythm, S1, S2. No: Bradycardia, Tachycardia, Pulse Irregular, Bruit, JVD, Gallop, Murmur, Rub, S3, S4, Varicosities Respiratory: Yes: WNL, Regular, CTA Bilaterally. No: Rales, Rhonchi, Wheezes Gastrointestinal: Yes: WNL, Normal Bowel Sounds, Soft. No: Distention, Tenderness Musculoskeletal: Yes: WNL Extremities: Yes: WNL Edema: Yes Edema: LLE: Trace, RLE: Trace Peripheral Pulses WNL: Yes Peripheral Pulses: Left Doralis Pedis: 2+, Right Dorsalis Pedis: 2+ Integumentary: Yes: WNL Neurological: Yes: WNL, Alert, Oriented ...Motor Strength: WNL Psychiatric: Yes: WNL, Alert, Oriented Labs: CBC, BMP 12/21/17 05:58 12/21/17 05:58 INR, PTT INR 1.14 (0.82-1.09) 12/18/17 17:00 - ....Imaging Chest X-ray: Report Reviewed, Image Reviewed EKG: Report Reviewed, Image Reviewed Other: Report Reviewed, Image Reviewed (tele-nsr, occ PVCS, no sig arrhythmias recorded) Assessment/Plan 77 year old man with a history of HTN, NIDDM, chol, chest pain workup 2016 with normal coronaries by Cath at [facility] who now is admitted with syncope. He was standing up at the time and lost consciousness without prodrome. Denies incontinence. No sz activity witnessed. he was recently seen by a [facility] outreach wheel truer in Dr Jarrett's office. Echo 02/25/16 mild glob HK, mild LVH, LAE mild to moderate MR FCDAOV Nuclear stress 02/25/16 sm-mod mild inferolateral ischemia EF 37% cath per pt [place] 2016 unremarkable. Syncope Assessment/Plan: Uncertain etiology, Neurology note appreciated Echo 12/21/17 showed normal LV systolic function, no sig valvular abnormalities Therefore unlikely that this was VT induced and will not pursure EP evaluation for ICD during this admission No significant events on telemetry, can arrange for longer term event monitoring as outpatient check orthostatics Remainder of cardiac work up can be done as outpatient CHF (congestive heart failure) 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 Pt overall euvolemic with very mild chronic b/l LE edema Continue beta vaibhav. Echo today as above showed normal LV systolic function Hold off on ACEI due to renal disease (appears to have acute on chronic CKD). No additional planned inpatient cardiac work up at this time. Pt can follow up as outpatient for longer term event monitor Please call with any additional questions.
--- NOTE | 2017-12-21 14:49 | PN ---
Progress Note, Physician Chief Complaint: comfotable vss no pain - Current Medication List Current Medications: Active Medications Acetaminophen (Tylenol -) 650 mg PO Q4H PRN PRN Reason: PAIN LEVEL 7 - 10 Stop: 12/22/17 23:59 Last Admin: 12/19/17 00:38 Dose: 650 mg Aspirin (Ecotrin -) 81 mg PO DAILY [facility] Last Admin: 12/21/17 10:24 Dose: 81 mg Atorvastatin Calcium (Lipitor -) 40 mg PO HS [facility] Last Admin: 12/20/17 21:17 Dose: 40 mg Azithromycin (Zithromax -) 250 mg PO DAILY [facility] Stop: 12/23/17 10:01 Last Admin: 12/21/17 10:38 Dose: 250 mg Guaifenesin (Robitussin -) 10 ml PO Q4H PRN PRN Reason: COUGH Last Admin: 12/19/17 23:50 Dose: 10 ml Metoprolol Succinate 50 mg/ (Metoprolol Succinate 25 mg) 75 mg PO DAILY [facility] Last Admin: 12/21/17 10:24 Dose: 75 mg - Objective Vital Signs: Vital Signs Temperature 98 F 12/21/17 10:00 Pulse Rate 97 H 12/21/17 10:00 Respiratory Rate 20 12/21/17 10:00 Blood Pressure 158/67 12/21/17 10:00 O2 Sat by Pulse Oximetry (%) 98 12/21/17 09:00 Constitutional: Yes: Well Nourished Eyes: Yes: WNL HENT: Yes: WNL Neck: Yes: WNL Cardiovascular: Yes: WNL Respiratory: Yes: WNL Gastrointestinal: Yes: WNL ...Rectal Exam: Yes: Deferred Genitourinary: Yes: WNL Breast(s): Yes: WNL Musculoskeletal: Yes: WNL Extremities: Yes: WNL Edema: No Psychiatric: Yes: WNL Labs: CBC, BMP 12/21/17 05:58 12/21/17 05:58 INR, PTT INR 1.14 (0.82-1.09) 12/18/17 17:00 Assessment/Plan ? d/c in am
--- NOTE | 2017-12-21 16:45 | PN ---
Progress Note (short form) - Note Progress Note: 77 year old man with a history of HTN, NIDDM, chol, chest pain workup 2016 with normal coronaries by Cath at [facility] who now is admitted with syncope. He was standing up at the time --+LOC Denies incontinence/tongue biting. No sz activity witnessed. no HX of Sz Echo 02/25/16 mild glob HK, mild LVH, LAE mild to moderate MR FCDAOV Nuclear stress 02/25/16 sm-mod mild inferolateral ischemia EF 37% cath per pt [facility] 2016 unremarkable. being treated for MARGARET on CKD due to diuretics/volume depletion UA (-), TSh NL IMPRESSION: No CT evidence of acute intracranial pathology. The intracranial structures demonstrate no definite interval change is in comparison to a prior CT study of 06/22/2015. Chronic bilateral cerebral and cerebellar infarcts are noted as discussed above. Doppler: IMPRESSION: Mild atherosclerotic disease with no evidence of hemodynamically significant stenoses. MRI Multiple bilateral supratentorial and infratentorial chronic infarcts. Generalized volume loss with moderate periventricular chronic microvascular ischemic disease changes. No mass lesion, acute infarct or intracranial hemorrhage are identified. MRA of the brain. A noncontrast MRA of the brain was performed utilizing 3-D [id number] technique. Source and MIP images were reviewed. In the anterior circulation, no gross focal stenosis, aneurysm or major artery cutoff is seen. In the posterior circulation, the vertebrobasilar junction, basilar artery and tip appear unremarkable. Both posterior cerebral and superior cerebellar arteries appear unremarkable. Impression: No gross focal stenosis, aneurysm, major artery cutoff or vascular malformation is identified within the central intracranial arterial circulation. MRA of the neck without intravenous contrast 2D and 3-D time of flight technique was utilized. Source and MIP images were reviewed . The vertebral arteries appear unremarkable. The common carotid artery and its bifurcation appears unremarkable without evidence of stenosis, bilaterally. Impression: There is no gross evidence of hemodynamically significant stenosis at the common carotid bifurcation, bilaterally. 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: Yes: CVA, TIA, Other (oms mild) Cardio/Vascular: Yes: HTN Gastrointestinal: Yes: Diverticulosis Musculoskeletal: Yes: Other (knee o/a) - Past Surgical History Past Surgical History: Yes: Tonsillectomy - Alcohol/Substance Use Hx Alcohol Use: No - Smoking History Smoking history: Unknown if ever smoked Have you smoked in the past 12 months: No Aproximately how many cigarettes per day: 0 If you are a former smoker, when did you quit?: 1996 Home Medications - Allergies Allergies/Adverse Reactions: Allergies Allergy/AdvReac Type Severity Reaction Status Date / Time No Known Allergies Allergy Verified 02/25/16 02:40 - Home Medications Home Medications: Ambulatory Orders Allopurinol [Zyloprim -] 300 mg PO DAILY 02/25/16 Clopidogrel Bisulfate [Plavix -] 75 mg PO DAILY 02/25/16 Furosemide [Lasix -] 20 mg PO DAILY 02/25/16 Glyburide [Diabeta -] 2.5 mg PO DAILY 02/25/16 Memantine HCl [Namenda -] 28 mg PO DAILY 02/25/16 Metoprolol Succinate [Toprol Xl] 75 mg PO DAILY 02/25/16 Simvastatin [Zocor -] 20 mg PO HS 02/25/16 Physical Exam-Neuro Vital Signs: Vital Signs Vital Signs Temperature 98 F 12/21/17 10:00 Pulse Rate 97 H 12/21/17 10:00 Respiratory Rate 20 12/21/17 10:00 Blood Pressure 158/67 12/21/17 10:00 O2 Sat by Pulse Oximetry (%) 98 12/21/17 09:00 Labs: CBCD WBC 11.4 K/mm3 (4.0-10.0) H 12/21/17 05:58 RBC 3.95 M/mm3 (4.00-5.60) L 12/21/17 05:58 Hgb 12.7 GM/dL (11.7-16.9) 12/21/17 05:58 Hct 38.4 % (35.4-49) 12/21/17 05:58 MCV 97.2 fl (80-96) H 12/21/17 05:58 MCHC 33.0 g/dl (32.0-35.9) 12/21/17 05:58 RDW 14.1 % (11.9-15.9) 12/21/17 05:58 Plt Count 216 K/MM3 (134-434) 12/21/17 05:58 MPV 8.9 fl (7.5-11.1) 12/21/17 05:58 CMP Sodium 143 mmol/L (136-145) 12/21/17 05:58 Potassium 3.8 mmol/L (3.5-5.1) 12/21/17 05:58 Chloride 105 mmol/L (98-107) 12/21/17 05:58 Carbon Dioxide 34 mmol/L (21-32) H 12/21/17 05:58 Anion Gap 4 (8-16) L 12/21/17 05:58 BUN 20 mg/dL (7-18) H D 12/21/17 05:58 Creatinine 1.1 mg/dL (0.7-1.3) 12/21/17 05:58 Creat Clearance w eGFR 41.90 (>60) 12/19/17 05:30 Calcium 8.4 mg/dL (8.5-10.1) L 12/21/17 05:58 Total Bilirubin 0.7 mg/dL (0.2-1.0) 12/19/17 05:30 AST 28 U/L (15-37) D 12/19/17 05:30 ALT 31 U/L (12-78) D 12/19/17 05:30 Alkaline Phosphatase 75 U/L (45-117) 12/19/17 05:30 Total Protein 7.2 g/dl (6.4-8.2) 12/19/17 05:30 Albumin 3.5 g/dl (3.4-5.0) 12/19/17 05:30 Imaging - Results Cat Scan: Report Reviewed, Image Reviewed Assessment/Plan 77 year old man with a history of HTN, NIDDM, chol, chest pain workup 2016 with normal coronaries by Cath at [facility] who now is admitted with syncope. He was standing up at the time and lost consciousness without prodrome. Denies incontinence. No sz activity witnessed. no HX of Sz Echo 02/25/16 mild glob HK, mild LVH, LAE mild to moderate MR FCDAOV Nuclear stress 02/25/16 sm-mod mild inferolateral ischemia EF 37% cath per pt [facility] 2016 unremarkable. being treated for MARGARET on CKD due to diuretics/volume depletion UA (-), TSh NL , DOppler (-), CT HD (-) except ? fluid left maxillary AP : Syncope -- no evidence of seizure or acute CVA event. nonfocal exam and appears back to baseline. card BANDA in progress, FU ECHO DOPPLER (-) , MRI chronic infarcts , no focal stenosis, would get computer terminal operator holter if not done continue NAMENDA on ASA/plavix --though unclear if needs dual AP at this point from neuro perspective-can revert to ASA ok to Dc from neuro stand point DR SALAMANCA
[2017-12-21] MEDS: ATORVASTATIN CA 40 MG TABLET (FP) PO SCH (21:33)
[2017-12-22 08:35] LABS: BASO % 0.4 % (0-2.0); EOS % 2.9 % (0-4.5); HEMATOCRIT 37.4 % (35.4-49); HEMOGLOBIN 12.6 GM/dL (11.7-16.9); LYMPH % 17.3 % (8-40); MCH 32.4 pg (25.7-33.7); MCHC 33.6 g/dl (32.0-35.9); MEAN CELL VOLUME 96.6 fl (80-96); MEAN PLT VOLUME 8.7 fl (7.5-11.1); MONO % 10.7 % (3.8-10.2); NEUT % 68.7 % (42.8-82.8); PLATELET COUNT 211 K/MM3 (134-434); RBC 3.87 M/mm3 (4.00-5.60); WHITE BLOOD COUNT 11.1 K/mm3 (4.0-10.0)
[2017-12-22] MEDS ORDERED: metoPROLOL SUCCINATE 25 MG TAB.SR.24H (FP) ONE (09:38)
[2017-12-22] MEDS ORDERED: PT OWN MED DRAWER 7, Y5N ONE (09:39)
[2017-12-22] MEDS: METOPROLOL SUCCINATE 50 MG, METOPROLOL SUCCINATE 25 MG PO SCH (09:43)
[2017-12-22] MEDS: AZITHROMYCIN 250 MG TABLET PO SCH (09:44)
[2017-12-22] MEDS: ASPIRIN COATED 81 MG TABLET.EC PO SCH (09:44)
--- NOTE | 2017-12-22 09:51 | PN ---
Progress Note, Physician History of Present Illness: Seen and examined today in [facility]. no overnight events. no new complaints. - Current Medication List Current Medications: Active Medications Acetaminophen (Tylenol -) 650 mg PO Q4H PRN PRN Reason: PAIN LEVEL 7 - 10 Stop: 12/22/17 23:59 Last Admin: 12/19/17 00:38 Dose: 650 mg Aspirin (Ecotrin -) 81 mg PO DAILY [facility] Last Admin: 12/22/17 09:44 Dose: 81 mg Atorvastatin Calcium (Lipitor -) 40 mg PO HS [facility] Last Admin: 12/21/17 21:33 Dose: 40 mg Azithromycin (Zithromax -) 250 mg PO DAILY [facility] Stop: 12/23/17 10:01 Last Admin: 12/22/17 09:44 Dose: 250 mg Guaifenesin (Robitussin -) 10 ml PO Q4H PRN PRN Reason: COUGH Last Admin: 12/19/17 23:50 Dose: 10 ml Metoprolol Succinate 50 mg/ (Metoprolol Succinate 25 mg) 75 mg PO DAILY [facility] Last Admin: 12/22/17 09:43 Dose: 75 mg - Objective Vital Signs: Vital Signs Temperature 98.4 F 12/22/17 09:00 Pulse Rate 74 12/22/17 09:00 Respiratory Rate 20 12/22/17 09:00 Blood Pressure 140/65 12/22/17 09:00 O2 Sat by Pulse Oximetry (%) 96 12/21/17 23:00 Constitutional: Yes: No Distress, Calm Eyes: Yes: Conjunctiva Clear, EOM Intact HENT: Yes: Other (abrasion over forehead, not noted in note yesterday by error) . No: Atraumatic, Normocephalic Cardiovascular: Yes: Regular Rate and Rhythm, S1, S2. No: Bradycardia, Tachycardia, Pulse Irregular, Bruit, JVD, Gallop, Murmur, Rub, S3, S4, Varicosities Respiratory: Yes: Regular, CTA Bilaterally. No: Rales, Rhonchi, SOB, Wheezes Gastrointestinal: Yes: Normal Bowel Sounds, Soft. No: Distention, Tenderness Edema: LLE: Trace, RLE: Trace Peripheral Pulses WNL: Yes Peripheral Pulses: Left Doralis Pedis: 2+, Right Dorsalis Pedis: 2+ Neurological: Yes: Alert, Oriented Psychiatric: Yes: Alert, Oriented Labs: CBC, BMP 12/22/17 07:30 INR, PTT INR 1.14 (0.82-1.09) 12/18/17 17:00 - ....Imaging Chest X-ray: Report Reviewed, Image Reviewed EKG: Report Reviewed, Image Reviewed Other: Report Reviewed, Image Reviewed Assessment/Plan 77 year old man with a history of HTN, NIDDM, chol, chest pain workup 2016 with normal coronaries by Cath at [facility] who now is admitted with syncope. He was standing up at the time and lost consciousness without prodrome. Denies incontinence. No sz activity witnessed. he was recently seen by a [facility] outreach media consultant in Dr Jarrett's office. Echo 02/25/16 mild glob HK, mild LVH, LAE mild to moderate MR FCDAOV Nuclear stress 02/25/16 sm-mod mild inferolateral ischemia EF 37% cath per pt [facility] 2016 unremarkable. Syncope Assessment/Plan: Uncertain etiology, Neurology note appreciated Echo 12/21/17 showed normal LV systolic function, no sig valvular abnormalities Therefore unlikely that this was VT induced and will not pursure EP evaluation for ICD during this admission No significant events when on telemetry, can arrange for longer term event monitoring as outpatient check orthostatics Pt showed evidence of intravascular depletion on admission labs, which has improved, his diuretic was stopped, this supports orthostatic hypotension as possible source of syncope, agree with holding diuretic for now and re-evaluate as outpatient Remainder of cardiac work up can be done as outpatient CHF (congestive heart failure) 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 Pt overall euvolemic with very mild chronic b/l LE edema Diuretic held as above Continue beta vaibhav. Echo as above showed normal LV systolic function Hold off on ACEI due to renal disease (appears to have acute on chronic CKD). No additional planned inpatient cardiac work up at this time. Pt can follow up as outpatient for longer term event monitor Please call with any additional questions.
--- NOTE | 2017-12-22 10:56 | PN ---
Progress Note, Physician History of Present Illness: feels good bm good tolerating diet vss rt leg better no cogh - Current Medication List Current Medications: Active Medications Aspirin (Ecotrin -) 81 mg PO DAILY [facility] Last Admin: 12/22/17 09:44 Dose: 81 mg Atorvastatin Calcium (Lipitor -) 40 mg PO HS [facility] Last Admin: 12/21/17 21:33 Dose: 40 mg Metoprolol Succinate 50 mg/ (Metoprolol Succinate 25 mg) 75 mg PO DAILY [facility] Last Admin: 12/22/17 09:43 Dose: 75 mg - Objective Vital Signs: Vital Signs Temperature 98.4 F 12/22/17 09:00 Pulse Rate 74 12/22/17 09:00 Respiratory Rate 20 12/22/17 09:00 Blood Pressure 140/65 12/22/17 09:00 O2 Sat by Pulse Oximetry (%) 96 12/21/17 23:00 Constitutional: Yes: Well Nourished, No Distress Eyes: Yes: WNL HENT: Yes: WNL Neck: Yes: WNL Cardiovascular: Yes: WNL, Regular Rate and Rhythm Respiratory: Yes: WNL Gastrointestinal: Yes: WNL ...Rectal Exam: Yes: Deferred Genitourinary: Yes: WNL Breast(s): Yes: WNL Musculoskeletal: Yes: WNL Extremities: Yes: WNL Edema: No Neurological: Yes: Other (confised at times) ...Motor Strength: WNL Psychiatric: Yes: WNL Labs: CBC, BMP 12/22/17 07:30 INR, PTT INR 1.14 (0.82-1.09) 12/18/17 17:00 Assessment/Plan case manage to see him p/t eval ? d/c to sprain or adir [facility] short term rehab ? tia in am
--- NOTE | 2017-12-22 11:05 | PN ---
Progress Note, Physician History of Present Illness: ambulating bm good tolerating diet vss leg slightly edematous no complaints zoey drainig minaminaly - Current Medication List Current Medications: Active Medications Aspirin (Ecotrin -) 81 mg PO DAILY [facility] Last Admin: 12/22/17 09:44 Dose: 81 mg Atorvastatin Calcium (Lipitor -) 40 mg PO HS [facility] Last Admin: 12/21/17 21:33 Dose: 40 mg Metoprolol Succinate 50 mg/ (Metoprolol Succinate 25 mg) 75 mg PO DAILY [facility] Last Admin: 12/22/17 09:43 Dose: 75 mg - Objective Vital Signs: Vital Signs Temperature 98.4 F 12/22/17 09:00 Pulse Rate 74 12/22/17 09:00 Respiratory Rate 20 12/22/17 09:00 Blood Pressure 140/65 12/22/17 09:00 O2 Sat by Pulse Oximetry (%) 96 12/21/17 23:00 Constitutional: Yes: No Distress Eyes: Yes: WNL HENT: Yes: WNL Neck: Yes: WNL Cardiovascular: Yes: WNL Respiratory: Yes: WNL Gastrointestinal: Yes: Normal Bowel Sounds, Soft, Other (wd dry) ...Rectal Exam: Yes: Deferred Genitourinary: Yes: WNL Breast(s): Yes: WNL Musculoskeletal: Yes: WNL Extremities: Yes: WNL, Shortened Edema: Yes Edema: LLE: Trace, RLE: Trace Peripheral Pulses WNL: Yes Integumentary: Yes: WNL Wound/Incision: Yes: Clean/Dry Neurological: Yes: WNL, Unsteady Gait Psychiatric: Yes: WNL Labs: CBC, BMP 12/22/17 07:30 INR, PTT INR 1.14 (0.82-1.09) 12/18/17 17:00 Assessment/Plan will f/u if needed
[2017-12-22 12:45] LABS: ANION GAP 10 (8-16); BLOOD UREA NITROGEN 24 mg/dL (7-18); CALCIUM 8.5 mg/dL (8.5-10.1); CHLORIDE 106 mmol/L (98-107); CO2 26 mmol/L (21-32); GLUCOSE,RANDOM 117 mg/dL (74-106); POTASSIUM 4.4 mmol/L (3.5-5.1); SODIUM 142 mmol/L (136-145)
[2017-12-22 14:30] VITALS: BP 157/74; PULSE 72; TEMP 98.5
--- NOTE | 2017-12-22 15:23 | PN ---
Progress Note, Physician History of Present Illness: Pt seen and examined at bedside. He is awake and alert. He is starting to develop edema in his legs. He denies SOB. - Current Medication List Current Medications: Active Medications Aspirin (Ecotrin -) 81 mg PO DAILY [facility] Last Admin: 12/22/17 09:44 Dose: 81 mg Atorvastatin Calcium (Lipitor -) 40 mg PO HS [facility] Last Admin: 12/21/17 21:33 Dose: 40 mg Metoprolol Succinate 50 mg/ (Metoprolol Succinate 25 mg) 75 mg PO DAILY [facility] Last Admin: 12/22/17 09:43 Dose: 75 mg - Objective Vital Signs: Vital Signs Temperature 98.5 F 12/22/17 14:00 Pulse Rate 72 12/22/17 14:00 Respiratory Rate 18 12/22/17 14:00 Blood Pressure 157/74 12/22/17 14:00 O2 Sat by Pulse Oximetry (%) 96 12/21/17 23:00 Constitutional: Yes: Calm Eyes: Yes: Conjunctiva Clear HENT: Yes: Atraumatic Cardiovascular: Yes: S1, S2 Respiratory: Yes: CTA Bilaterally Gastrointestinal: Yes: Soft Musculoskeletal: Yes: WNL Edema: Yes Edema: LLE: 1+, RLE: 1+ Neurological: Yes: Oriented Psychiatric: Yes: Oriented Labs: CBC, BMP 12/22/17 07:30 12/22/17 07:30 INR, PTT INR 1.14 (0.82-1.09) 12/18/17 17:00 Problem List - Problems (1) Syncope Code(s): R55 - SYNCOPE AND COLLAPSE Qualifiers: Syncope type: unspecified Qualified Code(s): R55 - Syncope and collapse (2) Diabetes Code(s): E11.9 - TYPE 2 DIABETES MELLITUS WITHOUT COMPLICATIONS (3) Gout Code(s): M10.9 - GOUT, UNSPECIFIED Qualifiers: Gout site: knee (4) HTN (hypertension) Code(s): I10 - ESSENTIAL (PRIMARY) HYPERTENSION Assessment/Plan Current Medications Generic Name Dose Route Start Last Admin Trade Name Freq PRN Reason Stop Dose Admin Aspirin 81 mg 12/20/17 10:00 12/22/17 09:44 Ecotrin - PO 81 mg DAILY [facility] Administration Atorvastatin Calcium 40 mg 12/19/17 22:00 12/21/17 21:33 Lipitor - PO 40 mg HS [facility] Administration Metoprolol Succinate 50 mg/ 75 mg 12/19/17 10:00 12/22/17 09:43 Metoprolol Succinate 25 mg PO 75 mg DAILY [facility] Administration Impression 1. syncope 2. hypokalemia 3. MARGARET on CKD 4. dehydration 5. cardiomyopathy 6. PVD changes on right lower extremity Plan - renal function is stabilizing - can restart lasix at 40 mg daily (he had beenon 40 mg bid at home) - repeat labs in am - monitor bp - will follow Dr Welch
[2017-12-22] MEDS ORDERED: FUROSEMIDE 40 MG TABLET (FP) PO SCH (15:30)
--- NOTE | 2017-12-22 15:43 | DS ---
Physical Examination Vital Signs: Vital Signs Temperature 98.5 F 12/22/17 14:00 Pulse Rate 72 12/22/17 14:00 Respiratory Rate 18 12/22/17 14:00 Blood Pressure 157/74 12/22/17 14:00 O2 Sat by Pulse Oximetry (%) 96 12/21/17 23:00 Constitutional: Yes: Well Nourished Eyes: Yes: WNL HENT: Yes: WNL Neck: Yes: WNL Cardiovascular: Yes: WNL Respiratory: Yes: WNL Gastrointestinal: Yes: WNL ...Rectal Exam: Yes: Deferred Renal/: Yes: WNL Breast(s): Yes: WNL Musculoskeletal: Yes: WNL Extremities: Yes: WNL Edema: No Peripheral Pulses WNL: Yes Integumentary: Yes: WNL Neurological: Yes: WNL ...Motor Strength: WNL Psychiatric: Yes: WNL Labs: CBC, BMP 12/22/17 07:30 12/22/17 07:30 Discharge Summary Reason For Visit: SYNCOPE Current Active Problems Syncope (Acute) Condition: Stable - Instructions Diet, Activity, Other Instructions: aPPT W [place] 1200NOON TOMORROW Referrals: Tyshawn Jarrett MD [Primary Care Provider] - Disposition: HOME - Home Medications Comprehensive Discharge Medication List: Ambulatory Orders Allopurinol [Zyloprim -] 300 mg PO DAILY 02/25/16 Clopidogrel Bisulfate [Plavix -] 75 mg PO DAILY 02/25/16 Furosemide [Lasix -] 20 mg PO DAILY 02/25/16 Glyburide [Diabeta -] 2.5 mg PO DAILY 02/25/16 Memantine HCl [Namenda -] 28 mg PO DAILY 02/25/16 Metoprolol Succinate [Toprol Xl] 75 mg PO DAILY 02/25/16 Simvastatin [Zocor -] 20 mg PO HS 02/25/16
== END 2017-12-22 19:30 | disposition home or self-care (01) | DRG 312 ==
LOC: JER 16:12 → JERBED 18:10 → J2W 12-19 10:43 → J6S 12-21 22:50
PROVIDERS: ADMIT Family Medicine; ATTEND Family Medicine
DX: R55 Syncope and collapse (principal); N17.9 Acute kidney failure, unspecified; I42.9 Cardiomyopathy, unspecified; I50.22 Chronic systolic (congestive) heart failure; I13.0 Hypertensive heart and chronic kidney disease with heart failure and stage 1 through stage 4 chronic kidney disease, or unspecified chronic kidney disease; M10.9 Gout, unspecified; E87.6 Hypokalemia; E11.22 Type 2 diabetes mellitus with diabetic chronic kidney disease; N18.9 Chronic kidney disease, unspecified; E86.0 Dehydration; I87.2 Venous insufficiency (chronic) (peripheral)
CPT/HCPCS: 36415; 70450-TC; 70544-TC; 70547-TC; 70551-TC; 71045-TC-FY; 76775-TC; 80048; 80053; 81003; 82550; 82962; 83036; 83735; 84443; 84484; 85025; 85610; 87040; 87086; 93005; 93010; 93306-TC; 93880-TC; 93971-TC; 94640; 97116-GP; 97161-GP; 99285-25; J7030; J7620

== ENCOUNTER 2018-02-12 07:06 | Day surgery (SDC) | payer BC, OTHER ==
[2018-02-11 13:22] VITALS: BMI 33.7
[2018-02-12] MEDS ORDERED: TETRACAINE 0.5% OPHTH SOLN 2 ML BOTTLE ONE (07:16)
[2018-02-12] MEDS ORDERED: BSS (NA/CA/MG/K) BALANCED SALT SOLUTION OPHTH SOLN 15 ML BOTTLE ONE (07:16)
[2018-02-12] MEDS ORDERED: LIDOCAINE 1% P/F 10 MG/ML VIAL ONE (07:16)
[2018-02-12] MEDS ORDERED: EPINEPHrine/PF 1 MG/1 ML (1:1,000) AMPULE ONE (07:17)
[2018-02-12] MEDS ORDERED: CARBACHOL 0.01% INTRA-OCULAR 1.5 ML VIAL ONE (07:17)
[2018-02-12] MEDS: CYCLOPENTOLATE 2% OPHTH SOLN 2 ML BOTTLE ONE ×3 (07:35→07:45)
[2018-02-12] MEDS: PHENYLEPHRINE 2.5% OPHTH SOLN 15 ML BOTTLE ONE ×3 (07:35→07:45)
[2018-02-12] MEDS: CIPROFLOXACIN 0.3% EYE DROPS 5 ML BOTTLE ONE ×3 (07:35→07:45)
[2018-02-12] MEDS: TROPICAMIDE 1% OPHTH SOLN 15 ML BOTTLE ONE ×3 (07:35→07:45)
[2018-02-12] MEDS ORDERED: MIDAZOLAM HCL 2 MG/2 ML SINGLE DOSE VIAL ONE (07:43)
--- NOTE | 2018-02-12 09:00 | OP ---
DATE OF OPERATION: 02/12/2018 OPERATIVE PROCEDURE: Lens phacoemulsification with posterior chamber intraocular lens placement, right eye. PREOPERATIVE DIAGNOSIS: Visually significant cataract of right eye. POSTOPERATIVE DIAGNOSIS: Visually significant cataract of right eye. SURGEON: Raj Landon MD ANESTHESIA: MAC. PROCEDURE: The patient was brought to the operating room and placed under monitored anesthesia care by Anesthesia. A drop of tetracaine was then placed over the right eye. The patient was then prepped and draped in the usual sterile manner. A speculum was then placed over the right eye. The eye was then well irrigated with copious amounts of BSS (balanced salt solution). The operating microscope was then moved into position. A paracentesis was performed using a 15-degree blade. At this point 0.5 mL of 1% preservative-free lidocaine was injected into the anterior chamber. Amvisc Plus was then injected into the anterior chamber. A clear corneal incision was then formed using a 2.2-mm keratome. A capsulorrhexis was then performed in a continuous circular fashion beginning with a cystotome completed with an Utratas forceps. Hydrodissection was then performed using BSS on a cannula. The phaco probe was then introduced through the corneal wound and the cataract was removed using the phaco chop technique. Approximately 3 seconds of absolute phaco time was used. The remaining cortex was then removed using irrigation and aspiration with an I/A probe. The capsule was then filled with regular Amvisc and the capsule was noted to be intact. A previously selected foldable posterior chamber intraocular lens was then injected into the capsule through the corneal wound using a lens injector. It was then dialed into position using a Sinskey hook. The Amvisc was then removed using irrigation and aspiration. Miostat was then injected through the paracentesis to constrict the pupil. The paracentesis and corneal wound were then hydrated and noted to be watertight. A drop of Maxitrol was then placed over the eye. The speculum was removed and clear shield was taped over the eye. The patient tolerated the procedure well and there were no surgical complications. The patient was asked to follow up in my office the next day. RAJ LANDON M.D. [id number]
[2018-02-12 09:04] VITALS: TEMP 98.1
[2018-02-12 14:36] VITALS: BP 116/83; PULSE 76
== END 2018-02-12 10:45 | disposition home or self-care (01) ==
LOC: FASU 07:06
PROVIDERS: ATTEND Ophthalmology
PROC: 08RJ3JZ Replacement of Right Lens with Synthetic Substitute, Percutaneous Approach (ICD-10-PCS; principal; 2018-02-12 08:25)
DX: H26.8 Other specified cataract (principal)
CPT/HCPCS: 82962